=== PATIENT | female | born 1955 | race Caucasian/White ===

== ENCOUNTER → 2021-11-27 12:38 | Outpatient (CLI) | payer MEDICARE, SELFPAY ==
[2021-11-27 14:15] LABS: COVID19 -Nasal RAPID Negative (Negative)
== END ==
PROVIDERS: PCP Family Medicine; Referring Provider Orthopaedic Surgery; Visit Provider Orthopaedic Surgery
DX: Z20.822 Contact with and (suspected) exposure to COVID-19 (principal)
CPT/HCPCS: 87635; C9803

== ENCOUNTER 2021-11-29 10:25 | Day surgery (SDC) | payer MEDICARE, SELFPAY ==
[2021-11-21 13:58] VITALS: BMI 34.2
[2021-11-29] VITALS (17 sets, daily range): BP systolic 121–156; BP diastolic 55–83; PULSE 71–94; RESP 14–22; TEMP 36.4–37.2; O2SAT 92–100; BMI 34.2
--- NOTE | 2021-11-29 07:30 | DI.RAD.S_ITS ---
PROCEDURE: XR KNEE RT 1TO2V INDICATIONS: post op total knee TECHNIQUE: 2 view(s) of the knee acquired. COMPARISON: [facility] [place], [place], XR KNEE 4+ VIEWS RIGHT, 07/07/2021, 9:35. FINDINGS: Bones: Patient is status post knee joint arthroplasty. Hardware components are in expected positions. Visualized bony structures are intact. Soft tissues: Overlying postoperative changes are noted. Vascular calcifications indicate atherosclerosis. IMPRESSION: Expected immediate postoperative appearance of right TKA. Dictated by: Mikhail Velasco RR Interpreted: Karl Bro MD on 11/29/2021 at 16:17 Transcribed by: SHIRA on 11/29/2021 at 16:18 Approved by: Karl Bro M.D. on 11/29/2021 at 18:50
[2021-11-29] MEDS: ACETAMINOPHEN 325 MG TABLET 975 MG PO (11:21)
[2021-11-29] MEDS: LACTATED RINGERS 1,000 ML 100 ML IV ×2 (11:31→16:27)
--- NOTE | 2021-11-29 11:53 | PM.PREOP ---
Pre-operative Note COVID-19 COVID-19 status: Negative Result date/Date tested (Pos, Neg/Pending): 11/27/21 Interval Note History & Physical reviewed/Exam performed by Physician: Yes Changes to H&P: No
--- NOTE | 2021-11-29 12:40 | SUR.PREOP ---
11/13/[id number] here with patient. confirmed name//procedure/md. agreed to recieve block. on monitor. oxygen at 2l nc. sedated by anesthesia with versed. monitored at bedside. 1225-block completed. patient did well. pictures and ekg strip in chart to OR. 1230-off monitors. to OR.
[2021-11-29] MEDS: CEFAZOLIN 2 GM/20 ML SYRINGE IV (12:45)
[2021-11-29] MEDS: TRANEXAMIC ACID 1,000 MG VIAL 1000 MG INJ ×2 (13:10→14:23)
[2021-11-29] MEDS: MORPHINE 4 MG/ML INJ INJ (13:18)
[2021-11-29] MEDS: BUPIVACAINE 0.25% (PF) 60 ML, EPINEPHrine 0.3 MG INJ ×2 (13:23→13:24)
--- NOTE | 2021-11-29 13:28 | SUR.OPER ---
Supine on padded OR bed. Pillow under head, arms secured on padded armboards <90 degree abduction. Safety belt across torso. Non-operative leg secured with tape over blanket over lower leg. Operative leg secured in DeMayo/Nolan/Nathe positioner. Foam padded brace at thigh of operative leg.POSITION APROVED BY ANESTHESIA AND SURGEON
[2021-11-29] MEDS: LACTATED RINGERS 1,000 ML 42 ML IV (13:48)
[2021-11-29] MEDS: BUPIVACAINE LIPOSOME 266 MG/20 ML VIAL INJ (13:50)
--- NOTE | 2021-11-29 14:33 | PM.OP.1 ---
Operative Date/Time/Diagnoses Date of procedure: 11/29/21 Time of procedure: 14:33 Pre-op diagnosis: 1. Right knee osteoarthritis 2. History of patellar fracture Post-op diagnosis: same Procedure & Clinicians Procedure: Right total knee replacement Same procedure as scheduled: Yes Indications: The patient has had progressively worsening right knee pain with radiographic changes consistent with arthritis. She also has a prior vertical patellar fracture and the potential for a modified patellar prosthesis was discussed. Non-operative management has failed and the patient has requested total knee replacement. The risks, benefits and alternatives to surgery were discussed with the patient prior to proceeding. Risks discussed included, but were not limited to, failure to relieve pain, stiffness, infection, nerve damage, deep venous thrombosis, pulmonary embolism, stroke, coma, heart attack, permanent paralysis and , as well as the potential need for eventual revision of the prosthetic. Surgeon: Yahir Caceres Chemical Handler: Sanjay Hernandez Click Yes if Unassisted: No Anesthesia Type: Spinal, Sedation and Local Operative Notes Findings: Severe tricompartmental osteoarthritis worst on the lateral side. Closure Type: primary Specimen(s): none sent Prosthetic devices, grafts, tissues, transplants, or devices: Implants used in this procedure were manufactured by the [employer] and [employer] and included the BCS II Journey total knee replacement with a size 4 right cobalt chromium femoral component, a size 4 right non porous tibial base plate, a 9 mm cross-linked polyethylene insert and a 35 mm oval Renetta II patellar component. Applied: implant(s) Estimated Blood Loss (mL): 25 Blood products transfused: none Tourniquet time (min): 48 Procedure in detail: The patient was seen in the pre-operative area, where the patient identified the right knee as the operative site and this was marked with my initials. The patient received pre-operative antibiotics, and was taken to the operating room and placed on the operative table in the supine position. After satisfactory anesthesia, a time stamp assembler out was performed. The right leg was encircled with a tourniquet about the proximal thigh, and the leg was prepared from the toes to the tourniquet with ChloroPrep in the usual fashion and draped through sterile drapes. The leg was elevated and exsanguinated with Eschmark bandage and the tourniquet inflated to 250 mmHg pressure. The knee was approached through an approximately 18 cm incision centered over the patella and carried into the knee through a medial parapatellar arthrotomy. The anterior osteophytes and soft tissues were removed. The rotational landmarks of Stacie's line and the transepicondylar axis were marked on the femur with electrocautery, and intramedullary guide holes for the femur and tibia were created. The distal femoral cut was made in 6 degrees of valgus using the intramedullary guide at the primary cut setting. The proximal tibial cut was then made using the intramedullary guide, taking 7 mm of bone off the less involved medial side. The extension gap was checked and the rotation of the femoral component confirmed with the gap balancing system. The anterior, posterior and chamfer cuts were then made. The posterior osteophytes and soft tissues were then removed. The posterior capsule was injected with part of a mixture of 50 ml 0.25% Marcaine mixed with 20 ml Exparel and 4 mg of morphine for post-operative pain control. The remainder of this mixture was injected into the capsule and subcutaneous tissues during cement curing. The tibia was prepared with the rotation set by an extra medullary guide. Trial tibial and femoral components were then placed and the intercondylar notch cut through the femoral trial. Range of motion was 0-135 degrees, with good stability throughout the range. The patella was then cut to accommodate the patellar prosthetic. There was a tendency for lateral patellar subluxations or lateral release was performed. This corrected the tracking. The trials were then removed, and the femoral hole plugged with a bone plug. The bone was prepared with pulsatile lavage, and dried with a sponge. Cement was applied and the final prosthetics placed. Excess cement was removed during and after cement curing. After confirming there was no extruded cement posteriorly, the final tibial insert was placed. The knee was copiously irrigated and the tourniquet deflated. Hemostasis was obtained. The capsule was closed with interrupted # 2 polyester suture. The subcutaneous layer was closed with 3-0 Vicryl, and the skin with a running 3-0 V-Lock suture and Dermabond. An Aquacel Ag dressing was applied and the patient was taken to recovery having tolerated the procedure well. Complications: none Post-operative Condition: stable Disposition: PACU Plan for aftercare: The patient will be maintained on a standard total knee replacement protocol with weight bearing as tolerated. The patient will receive aspirin and sequential compression devices for DVT prophylaxis. The patient will be discharged home when safe for the home environment.
[2021-11-29] MEDS: HYDROMORPHONE 2 MG INJ IV ×2 (15:13→15:24)
--- NOTE | 2021-11-29 15:55 | SUR.PHASEI ---
1545: Pt A&Ox4, reports pain as tolerable, denies nausea, dressing is c/d/i, and ready to transfer to room. Report called to LAZARA Malone using SBAR and time allowed for questions. Pt transported to room 216. Sister updated.
[2021-11-29] MEDS: PREGABALIN 50 MG CAPSULE 100 MG PO ×2 (17:13→20:54)
[2021-11-29] MEDS: OXYCODONE IR 10 MG TABLET PO (17:18)
[2021-11-29] MEDS: ACETAMINOPHEN 325 MG TABLET 650 MG PO ×2 (17:19→23:49)
[2021-11-29] MEDS: HYDROMORPHONE 0.5 MG INJ 0.2 MG IV (19:03)
--- NOTE | 2021-11-29 19:55 | PC.NURSE ---
pt up from PACU this afternoon settled in to room A&Ox3 +CMS to R foot. dressing c/d/I. She denies n/v, and tolerates dinner fairly. She is on 2 LNC. BG 89 and insulin held. She is medicated with prn pain medications oxycodone and scheduled meds without much effect, rating pain 8/10 upon reassment with oxycodone. She is given prn hydroxizine and prn hydromorphone and is asking for assistance to use the restroom this evening. IVF running at 100 ml/hr. Continuous monitoring.
[2021-11-29] MEDS: OXYCODONE IR 5 MG TABLET PO (20:52)
[2021-11-29] MEDS: DONEPEZIL 5 MG TABLET 10 MG PO (20:53)
[2021-11-29] MEDS: ATORVASTATIN 20 MG TABLET PO (20:53)
[2021-11-29] MEDS: DULOXETINE 30 MG CAPSULE 60 MG PO (20:53)
[2021-11-29] MEDS: DOCUSATE 100 MG CAPSULE PO (20:53)
[2021-11-29] MEDS: AMLODIPINE 5 MG TABLET 10 MG PO (20:54)
[2021-11-29] MEDS: ASPIRIN EC 81 MG TABLET PO (20:54)
[2021-11-29] MEDS: METFORMIN HCL 500 MG TABLET 1000 MG PO (20:55)
[2021-11-29] MEDS: HYDROMORPHONE 2 MG TABLET PO (23:48)
[2021-11-30] VITALS: BP 140/78; PULSE 102; RESP 18; TEMP 36.8; O2SAT 96
[2021-11-30] MEDS: HYDROMORPHONE 2 MG TABLET PO ×2 (02:35→06:05)
[2021-11-30 02:49] LABS: Hemoglobin 10.5 g/dL (12.0-16.0)
[2021-11-30 04:15] VITALS: BP 137/66; PULSE 105; RESP 19; TEMP 36.9; O2SAT 95
[2021-11-30] MEDS: ACETAMINOPHEN 325 MG TABLET 650 MG PO ×2 (06:05→11:21)
[2021-11-30] MEDS: PANTOPRAZOLE DR 40 MG TABLET PO (06:05)
--- NOTE | 2021-11-30 07:33 | PM.DS.1 ---
History of Present Illness History of Present Illness Date Patient Seen: 11/30/21 Time Patient Seen: 07:33 Chief complaint: OPB Narrative: History and physical is contained in the chart previously completed note. Please refer to that note for this information. Discharge Providers Provider Date of admission: November 29, 2021 Discharge Date: 11/30/21 Primary care physician: Radha Jacinto MD Consults: 11/29/21 15:53 Consult to Discharge Planning Routine Comment: Consult to Physical Therapy Evaluate & Treat Comment: Physician Instructions: postop TKA protocol Discharge provider: Yahir Caceres MD Summary Hospital Course Discharge Diagnosis: 1. Right knee osteoarthritis 2. Post hemorrhagic anemia Hospital Course: The patient was admitted to the hospital and taken directly to the operating room on November 29, 2021. She underwent a right total knee replacement without complication. On postoperative day 1 she had a mild post hemorrhagic anemia but was otherwise stable. She had been able to walk around the room overnight and felt prepared to go home later in the day. Status at Discharge Cognitive/behavioral status at discharge: at baseline, oriented Functional status at discharge: uses cane/walker Overall status at discharge: patient is progressing back to baseline Time Spent with Patient Time spent: Less than 30 minutes Exam Vital Signs (past 8 hours): - 11/30/21 00:00 11/30/21 04:15 Temperature 98.3 F 98.5 F Pulse Rate 102 H 105 H Respiratory Rate 18 19 Blood Pressure 140/78 137/66 Pulse Oximetry 96 95 Oxygen Flow Rate 2 2 Oxygen Delivery Method Room Air Oxygen Flow Rate 2 Narrative Exam Narrative: Right knee wound is dressed with no drainage on the bandage. Calf is soft. Light touch and motion are intact in the right lower extremity. Objective Labs Result Diagrams: 11/30/21 02:33 Labs: Laboratory Results - last 24 hr 11/30/21 02:33 Hgb 10.5 L Hct 32.0 L PFSH Medical History Anxiety ASD (atrial septal defect) Chronic back pain CVA (cerebral vascular accident) Diabetes Diabetic neuropathy Fibromyalgia HLD (hyperlipidemia) HTN (hypertension) Kyphosis Mild dementia VENECIA (obstructive sleep apnea) Osteoarthritis Scoliosis Urinary frequency Surgical History History of bunionectomy of right great toe History of hysterectomy History of orthopedic surgery History of orthopedic surgery History of repair of hiatal hernia History of tonsillectomy and adenoidectomy Hx of bariatric surgery (03/2021) Hx of cholecystectomy S/P epidural steroid injection Social History household members: family Smoking Status: Never smoker alcohol intake: former Discharge Assessment & Plan Assessment and Plan Assessment: Stable postoperative day 1 status post right total knee replacement with mild post hemorrhagic anemia which should resolve without specific intervention. Patient has been able to ambulate around the room and feels ready for discharge today. Plan of Treatment: Discharge to home after physical therapy this morning. Follow-up in the office in 2 weeks. Discharge prescriptions for oxycodone have been sent to her pharmacy. She has been instructed in the use of Tylenol for mild pain issues. She cannot use anti-inflammatories for pain. She has been instructed in the use of aspirin for DVT prophylaxis. Discharge Plan Discharge Plan Patient Disposition: Home Discharge orders & Medications Discharge Orders: Discharge (Order); Ordered 11/30/21 Ordered By: Yahir Caceres Prescriptions: New acetaminophen 325 mg Tablet 650 mg PO Q6HR Qty: 120 0RF aspirin 81 mg Tablet,Delayed Release (Dr/Ec) 81 mg PO BID Qty: 84 0RF oxycodone 5 mg Tablet 5 mg PO Q4H PRN (Reason: Pain, Moderate (4-6)) Qty: 40 0RF Continued multivitamin Tablet 1 tab PO DAILY atorvastatin 20 mg Tablet 20 mg PO BEDTIME donepezil [Aricept] 10 mg Tablet 10 mg PO BEDTIME omeprazole 40 mg Capsule,Delayed Release(Dr/Ec) 40 mg PO DAILY tramadol 50 mg Tablet 50 mg PO DAILY PRN (Reason: Pain) amlodipine 10 mg Tablet 10 mg PO BEDTIME metformin 1,000 mg Tablet 1,000 mg PO BID duloxetine 60 mg Capsule,Delayed Release(Dr/Ec) 60 mg PO BID eszopiclone [Lunesta] 3 mg Tablet 3 mg PO BEDTIME pregabalin 50 mg Capsule 100 mg PO TID magnesium oxide 400 mg magnesium Tablet 400 mg PO DAILY Novolin 70/30 U-100 Insulin 100 unit/mL (70-30) Suspension 15 unit SUBCUT QAM Label Comments: 6 u Novolin 70/30 U-100 Insulin 100 unit/mL (70-30) Suspension 6 - 8 unit SUBCUT BEDTIME cyclosporine [Restasis] 0.05 % Dropperette 1 drp OPHTHALMIC (EYE) BID Discontinued aspirin 81 mg Capsule 81 mg PO DAILY Follow up/Referrals: Radha Jacinto MD [Primary Care Provider] - Yahir Caceres MD [Physician] - 2 Weeks Diet/Activity/Treatments Diet: Diet as Tolerated and Carb-consistent/Diabetic Activity: You may bear weight as tolerated on your right leg. Cold/Heat Therapy: You may apply ice for 15 minutes every hour as needed to the right knee for pain control. Skin/Wound/Dressing Care Report to your healthcare provider any signs of infection, such as:: chills, fever, night sweats, increased pain, unusual drainage and unusual redness Dressing: You may remove the Herb wrap 3 days after surgery and shower normally with the deeper dressing in place. Leave the deeper dressing in place until your postoperative follow-up. If the central strip of the dressing becomes saturated with either water or blood, please call the office to have it evaluated. Visit Report/Discharge Packet Instructions: DI for Knee Replacement Stand Alone Forms: Surgery Discharge Discharge Data Primary Care Provider: Radha Jacinto Attending Provider: Yahir Caceres
[2021-11-30] MEDS: INSULIN NPH/REG 70-30 100 UNIT/ML 3ML VIAL 15 UNIT SUBCUT (08:22)
[2021-11-30] MEDS: ASPIRIN EC 81 MG TABLET PO (08:23)
[2021-11-30] MEDS: METFORMIN HCL 500 MG TABLET 1000 MG PO (08:23)
[2021-11-30] MEDS: DULOXETINE 30 MG CAPSULE 60 MG PO (08:23)
[2021-11-30] MEDS: PREGABALIN 50 MG CAPSULE 100 MG PO ×2 (08:23→16:02)
[2021-11-30] MEDS: OXYCODONE IR 10 MG TABLET PO ×3 (08:23→16:01)
[2021-11-30] MEDS: MULTIVITAMIN 1 TABLET 1 TAB PO (08:23)
[2021-11-30] MEDS: DOCUSATE 100 MG CAPSULE PO (08:23)
[2021-11-30] MEDS: MAGNESIUM OXIDE 400 MG TABLET PO (08:23)
[2021-11-30 08:32] VITALS: BP 119/46; PULSE 90; RESP 16; TEMP 36.4; O2SAT 91
--- NOTE | 2021-11-30 09:46 | PT.IIE ---
Current Diagnoses Unilateral primary osteoarthritis, right knee (11/29/21) Surgery Performed Operation Date: 11/29/21 12:30 Actual Procedures p Total Knee Arthroplasty(Right) - Yahir Caceres MD Surgical History (Last Reviewed 11/29/21 @ 10:46 by Peggy Bradley, RN) History of bunionectomy of right great toe History of hysterectomy History of orthopedic surgery History of orthopedic surgery History of repair of hiatal hernia History of tonsillectomy and adenoidectomy Hx of bariatric surgery (03/2021) Hx of cholecystectomy S/P epidural steroid injection Medical History (Last Reviewed 11/29/21 @ 10:46 by Peggy Bradley, LAZARA) Anxiety ASD (atrial septal defect) Chronic back pain CVA (cerebral vascular accident) Diabetes Diabetic neuropathy Fibromyalgia HLD (hyperlipidemia) HTN (hypertension) Kyphosis Mild dementia VENEICA (obstructive sleep apnea) Osteoarthritis Scoliosis Urinary frequency Physical Therapy Inpatient Evaluation/Re-Eval M1 PT/OT-IP Prior Functional Status Start: 11/30/21 12:37 Freq: NEEDED Status: Active Protocol: Document 11/30/21 09:46 AB (Rec: 11/30/21 12:55 AB [id number]) Medical Review Prior Functional Status Medical History Reviewed Yes Communication able to make needs known; pt stated that she has dementia and harder for her to remember Mobility and Gait pt stated that she is modified independent with all mobilities and ambulation withotu AD Social History Household Members family Living Arrangements Apartment/Condo Number of Floors (Floors) Two Floors Number of Stairs To Enter/Railing? pt stays on main level of the house 3 platform steps with R rail descending to get into the house Home Environment Standard Height Toilet,Tub/ Shower Home Equipment Front Wheel Walker,Shower Seat with Backrest,Grab Bars Near Toilet,Grab Bars In Shower Additional Social History Comment pt sleeps on a recliner M2 PT-IP Current Condition Start: 11/30/21 12:37 Freq: NEEDED Status: Active Protocol: Document 11/30/21 09:46 AB (Rec: 11/30/21 12:55 AB [email or web address]) Physical Therapy Current Condition Current Condition Evaluation Date 11/30/21 Treatment Diagnosis s/p R TKA; difficulty in walking Onset Date 11/29/21 M3 PT-IP Subjective Start: 11/30/21 12:37 Freq: NEEDED Status: Active Protocol: Document 11/30/21 09:46 AB (Rec: 11/30/21 12:55 AB [id number]) Subjective Physical Therapy Visit Type Type Initial Evaluation Visit Start Time 09:46 Visit Stop Time 10:30 Total Visit Minutes 44 Number of PRESSURE WELDER Visits 0 Physical Therapy Visit Comments Patient Comments agreeable to do PT Therapy Pain Assessment Pain When Pain Assessed At Rest Pain Present Pain Present Pain Reported Location Right Knee Intensity 5 Scale Used 8/10 during mobility Pain Management Techniques Apply Cold,Distraction, Modification of Treatment,Re- positioning,Timing of Activity with Medications M4 PT-IP Mobility and Gait Start: 11/30/21 12:37 Freq: NEEDED Status: Active Protocol: Document 11/30/21 09:46 AB (Rec: 11/30/21 12:55 [id number]) PT-Bed Mobility Assessment Supine to Sit Supine to Sit Standby Assistance PT-Transfer Assessment Sit to and From Stand Sit to and from Stand Minimal Assistance,1 Person Assistance,Use of Upper Extremities Equipment Transfer Assistive Device Gait Belt,Front Wheeled Walker Orthotic/Prosthetic Devices or Brace: No Transfers Transfer Destination Toilet Transfer Technique ambulated Transfer Ability Level of Assist Standby Assistance,Contact Guard Assistance,Use of Upper Extremities Comments Mobility Comments completed supine to sit SBA. completed sit to stand min a and ambulated to the toilet using FWW SBA to CGA. able to complete toileting needs and ambulated to the sink using FWW SBA. able to maintain standing using FWW for support SBA. pt stated she needs to sit and rest and ambulated to the chair using FWW SBA. pt agreed to do step training. ambulated towards the platform step using FWW SBA to CGA ~ 30 ft. attempted up/down platform step x 3 but pt unable to complete. pt ambulated back to her chair using FWW SBA to CGA. increase trunk flexion/ kyphosis towards end of ambulation. pt agreed to sit on the chair. positioned on the chair. call light and table placed within reach. set up caregiver training with pt's sister at 1pm this afternoon. Gait Assessment Gait Gait Assistance Required: Standby Assistance,Contact Guard Assist Distance (Feet) 30 Able to Maintain Weight Bearing Status Yes During Gait Assistive Devices Assistive Device Gait Belt,Front Wheeled Walker Orthotic/Prosthetic Devices or Brace: No Gait Deviations General Gait Pattern Antalgic,Decreased Stride Length,Decreased Feet Clearance,Step-to Gait Factors Limiting Gait Function Factors Limiting Gait Function Decreased Activity Tolerance, Decreased Strength,Difficulty Following Directions,Limited Range of Motion,Pain,Poor Balance,Poor Safety Awareness Stair Climbing Assessment Comments Stair Climbing Comments attempted but pt unable to complete PT-Balance Assessment Sitting Balance and Reactions Static Sitting Balance Ability Normal Dynamic Sitting Balance Ability Good Standing Balance and Reactions Static Standing Balance Ability Fair Dynamic Standing Balance Ability Fair Device Used FWW M5 PT-IP Objective Assessments Start: 11/30/21 12:37 Freq: NEEDED Status: Active Protocol: Document 11/30/21 09:46 AB (Rec: 11/30/21 12:55 AB [email or web address]) Orientation Orientation/Cognition Level of Alertness Alert Orientation Name,Situation Language Function Ability Hard of Hearing Safety Awareness Decreased Safety Awareness Memory Description Short Term Impaired Gross Range of Motion Lower Extremity ROM Impairments R knee flexion: ~ 70 deg Strength Lower Extremity Strength Assessment Right Impaired Hip 4-/5 Knee 3+/5 Coordination Assessment Gross Coordination Gross Coordination WNL Sensation Assessment Sensation Gross Sensation WNL Muscle Tone Muscle Tone WNL Yes M6 PT-IP Treatment Start: 11/30/21 12:37 Freq: NEEDED Status: Active Protocol: Document 11/30/21 09:46 AB (Rec: 11/30/21 12:55 AB [email or web address]) Physical Therapy Treatment Education Education Provided Precautions,Weight Bearing Status,Post-Op Packet,Safety M7 PT-IP Assessment and Plan Start: 11/30/21 12:37 Freq: NEEDED Status: Active Protocol: Document 11/30/21 09:46 AB (Rec: 11/30/21 12:55 [email or web address]) PT Summary Assessment and Plan Potential Rehabilitation Potential Fair Status of Condition at Evaluation Stable Summary Impairments Pain,ROM,Strength,Balance, Coordination,Sensation,Tone, Cognition,Bed Mobility, Transfers,Gait,Activity Tolerance Assessment Summary pt requiring SBA to CGA with ambulation using FWW but unable to complete stair climbing. caregiver training set up at 1pm today with pt's sister. will continue to assess progress. Goals Bed Mobility Goal Independent Transfer Goal Standby Assistance,Front Wheeled Walker Gait Goal Standby Assistance,Front Wheel Walker Gait Distance 200 Other Goals up/down 3 platform steps using FWW SBA Days to Meet Goals 5 Frequency of Treatment Frequency Of Treatment Twice a Day Treatment Plan Physical Therapy Treatment Plan Bed Mobility Training,Transfer Training,Gait Training, Therapeutic Exercise,Balance Retraining,Post Op Education, Discharge Planning,Hot or Cold Pack,Neuromuscular Re-ed, Coordination Retraining,Manual Therapy Precautions Other Precautions falls Weight Bearing Status Weight Bearing Status Weight Bear as Tolerated Allowed Weight Bearing Amount (enter % RLE WBAT or #) (%) Recommendations To Nursing Amount of Assist Needed 1 Person Assist Discharge Recommendations PT Discharge Recommendations Home with 31/12 Assist Available,Outpatient PT Transportation Needs at Discharge Private Vehicle
[2021-11-30 13:10] VITALS: BP 99/45; PULSE 95; RESP 16; TEMP 35.9; O2SAT 91
--- NOTE | 2021-11-30 13:10 | PT.IPTN ---
Current Diagnoses Unilateral primary osteoarthritis, right knee (11/29/21) Surgery Performed Operation Date: 11/29/21 12:30 Actual Procedures p Total Knee Arthroplasty(Right) - Yahir Caceres MD Physical Therapy Treatment Note M2 PT-IP Current Condition Start: 11/30/21 12:37 Freq: NEEDED Status: Active Protocol: Document 11/30/21 09:46 AB (Rec: 11/30/21 12:55 AB [id number]) Physical Therapy Current Condition Current Condition Evaluation Date 11/30/21 Treatment Diagnosis s/p R TKA; difficulty in walking Onset Date 11/29/21 M3 PT-IP Subjective Start: 11/30/21 12:37 Freq: NEEDED Status: Active Protocol: Document 11/30/21 13:10 AB (Rec: 11/30/21 14:24 AB [id number]) Subjective Physical Therapy Visit Type Type Treatment Note Visit Start Time 13:10 Visit Stop Time 13:58 Total Visit Minutes [address] F[address]IGHT FIRER Visits 0 Physical Therapy Visit Comments Patient Comments agreeable to do PT Therapy Pain Assessment Pain When Pain Assessed At Rest Pain Present Pain Present Pain Reported Location Right Knee Intensity 5 Scale Used Numeric (0 - 10) Pain Management Techniques Apply Cold,Distraction, Modification of Treatment,Re- positioning,Timing of Activity with Medications M4 PT-IP Mobility and Gait Start: 11/30/21 12:37 Freq: NEEDED Status: Active Protocol: Document 11/30/21 13:10 AB (Rec: 11/30/21 14:24 AB [id number]) PT-Bed Mobility Assessment Supine to Sit Supine to Sit Standby Assistance Sit to Supine Sit to Supine Standby Assistance PT-Transfer Assessment Sit to and From Stand Sit to and from Stand Minimal Assistance,Moderate Assistance,1 Person Assistance ,Use of Upper Extremities Equipment Transfer Assistive Device Gait Belt,Front Wheeled Walker Orthotic/Prosthetic Devices or Brace: No Transfers Transfer Destination Chair Transfer Technique Stand Step Pivot Transfer Ability Level of Assist Standby Assistance,Contact Guard Assistance,1 Person Assistance,Use of Upper Extremities Comments Mobility Comments sister in room for caregiver training. pt completed supine to sit SBA. able to sit on EOB SBA. educated sister on how to use safety belt and how to assist pt. pt's sister was able to put safety belt on pt. educated pt and sister regarding sit to stand technique. pt completed sit to stand min to mod A with sister assisting. completed x 4 reps. completed step transfer to [facility] using FWW CGA. completed sit <> stand from chair x 3 reps. ambulated in room using FWW CGA ~ 40 ft. agreed to do stair. completed up/down platform step mod A and cues with PT assisting on first set and repeated again with sister assisting. pt ambulated back to her room and sister assisted and sat on chair. pt 's sister is worried about pt going home due to mentation per sister since pt has not slept well last night. pt requested to go backt o bed and sister assisted pt to transfer to bed using FWW. positioned pt in bed. call light and table placed within reach. Gait Assessment Gait Gait Assistance Required: Standby Assistance,Contact Guard Assist Distance (Feet) 30 Able to Maintain Weight Bearing Status Yes During Gait Assistive Devices Assistive Device Gait Belt,Front Wheeled Walker Orthotic/Prosthetic Devices or Brace: No Gait Deviations General Gait Pattern Within Normal Limits,Decreased Stride Length,Decreased Feet Clearance Factors Limiting Gait Function Factors Limiting Gait Function Decreased Activity Tolerance, Decreased Strength,Difficulty Following Directions,Limited Range of Motion,Pain,Poor Balance,Poor Safety Awareness Stair Climbing Assessment Evaluation Level of Assist On Stairs Moderate Assistance,1 Person Assistance Devices Stair Climbing Assistive Devices Front Wheel Walker Technique/Endurance Stair Climbing Direction Ascend and Descend Stair Climbing Technique Step to Step Number of Steps Climbed 1 Stair Climbing Set # Repetitions (reps) 2 PT-Balance Assessment Sitting Balance and Reactions Static Sitting Balance Ability Good Dynamic Sitting Balance Ability Good Standing Balance and Reactions Static Standing Balance Ability Fair Dynamic Standing Balance Ability Fair Device Used FWW M5 PT-IP Objective Assessments Start: 11/30/21 12:37 Freq: NEEDED Status: Active Protocol: Document 11/30/21 09:46 AB (Rec: 11/30/21 12:55 AB [id number]) Orientation Orientation/Cognition Level of Alertness Alert Orientation Name,Situation Language Function Ability Hard of Hearing Safety Awareness Decreased Safety Awareness Memory Description Short Term Impaired Gross Range of Motion Lower Extremity ROM Impairments R knee flexion: ~ 70 deg Strength Lower Extremity Strength Assessment Right Impaired Hip 4-/5 Knee 3+/5 Coordination Assessment Gross Coordination Gross Coordination WNL Sensation Assessment Sensation Gross Sensation WNL Muscle Tone Muscle Tone WNL Yes M6 PT-IP Treatment Start: 11/30/21 12:37 Freq: NEEDED Status: Active Protocol: Document 11/30/21 13:10 AB (Rec: 11/30/21 14:24 AB [id number]) Physical Therapy Treatment Exercises Exercises Heel Slides Education Education Provided Safety M7 PT-IP Assessment and Plan Start: 11/30/21 12:37 Freq: NEEDED Status: Active Protocol: Document 11/30/21 13:10 AB (Rec: 11/30/21 14:24 AB [id number]) PT Summary Assessment and Plan Potential Rehabilitation Potential Fair Summary Impairments Pain,ROM,Strength,Balance, Coordination,Sensation,Tone, Cognition,Bed Mobility, Transfers,Gait,Activity Tolerance Progress Towards Goals Slow Progress due to Pain,Slow Progress due to Medical Issues,Slow Progress due to Activity Tolerance Assessment Summary caregiver training conducted and pt's sister was able to assist pt safely. pt may go home when medically stable. pt has outpt PT scheduled. Goals Bed Mobility Goal Independent Transfer Goal Standby Assistance,Front Wheeled Walker Gait Goal Standby Assistance,Front Wheel Walker Gait Distance 200 Other Goals up/down 3 platform steps using FWW SBA Days to Meet Goals 5 Frequency of Treatment Frequency Of Treatment Twice a Day Treatment Plan Physical Therapy Treatment Plan Bed Mobility Training,Transfer Training,Gait Training, Therapeutic Exercise,Balance Retraining,Post Op Education, Discharge Planning,Hot or Cold Pack,Neuromuscular Re-ed, Coordination Retraining,Manual Therapy Precautions Other Precautions falls Weight Bearing Status Weight Bearing Status Weight Bear as Tolerated Allowed Weight Bearing Amount (enter % RLE WBAT or #) (%) Recommendations To Nursing Amount of Assist Needed 1 Person Assist Discharge Recommendations PT Discharge Recommendations Home with 31/12 Assist Available,Outpatient PT Transportation Needs at Discharge Private Vehicle
--- NOTE | 2021-11-30 13:14 | CM.DANOTE ---
Patient is a 66 yo female who was admitted on 11/29/21 for RTKA. Pt has [facility] and [employer] for insurance and her PCP is Radha Jacinto. EMR was reviewed. Per Ortho MD, pt tolerated procedure well and seems to have good pain control and stable for d/c today after PT eval. Per PT, pt was able to participate in eval and has 3 steps in her home and recommending home with assist and outpt PT and set up CG training with pt's sister today around 1300 prior to discharge. Pt resides in [facility] and lives with family and confirms she has mild cog impairment from early dementia which makes it hard to remember precautions on her own and therefore thankful that sister will be present for CG training with PT and there to assist at d/c. Pt preference is home today and does not anticipate any needs. Plan: SW to follow closely for CG training this afternoon with pt and sister to confirm safe plan of home and any further identified discharge needs. EUGENE Anderson Discharge Planning/Care Management Pre-Anesthesia Assessment Start: 11/21/21 13:58 Freq: Status: Active Protocol: Document 11/21/21 13:58 [facility] (Rec: 11/21/21 14:38 CAB [id number]) Pre-Anesthesia Assessment Patient Information Reviewed Via Phone Assessment Assessment Completed With Patient Diagnostic Results BMP/CMP,CBC Comment Outside lab scanned, ECG done @ [facility], not here, COVID screen- needs to sched Primary Care Provider Radha Jacinto Seen Specialist in Last 12 Months Yes Specialist Seen Orthopedist,Other Comment Bariatric surgeon Primary Language Singaporean Chemistry Instructor Required No Height 167.64 cm Weight 96.162 kg Body Mass Index (BMI) 34.2 Hearing Ability Normal Visual Assist Glasses Dentition Type Teeth, Natural Present Barriers to Learning Memory Hx Anesthesia Reactions No Hx Family Anesthesia Reaction No Hx Malignant Hyperthermia No Hx Blood Transfusions No Anesthesia Review Requested No alcohol intake former Smoking Status Never smoker Substance Use Type does not use Pain Present Pain Reported Musculoskeletal Symptoms Abnormal Gait,Back Pain, Difficulty Walking,Joint Pain, Muscle Weakness History of Falling (Recent or History of Yes ) Patient is completely paralyzed or No completely immobile Mental Status Oriented to own ability Is patient on oxygen? No Does patient have MADDOX/SOB Yes: MADDOX with walking due to deconditioning Hx Sleep Apnea Yes: Resolved after gastric bypass surgery Currently Taking a Beta Toñito No Can You Climb a Flight of Stairs Without No SOB Hx Chest Pain No Hx SOB Yes: MADDOX with walking due to deconditioning Hx Syncope or Dizziness No Anti-Coagulant Therapy No Has a Retail Sales Manager No Cardiac Testing No Hx Pacemaker/ICD No Pacemaker Rep Required? No Cardiac Clearance Received Not Applicable Diet Type At Home Regular dysphagia No Bladder Pattern Frequency,Incontinent,Urgency Urinary Catheter Present No Hx Urinary Self Catheterization No Diabetes Yes: Pt checks blood sugar twice a day Patient No Lactating No Hx Drug Resistant Organism No Presence of External or Internal Medical No Devices Have you had any close contact with No someone diagnosed with COVID-19? Received a COVID vaccine? Yes Received all doses? Yes Marital Status / Lives With family Prior Living Arrangements Apartment/Condo Support System Sibling(s) Does the Patient Have Assistance After Yes: Sister will assist with Surgery care at [facility] Patient Discharge Plan Description Return Home Comment Pt advised overnight length of stay per surgeon Feels Safe in Current Environment Yes Been Physically Hurt or Threatened By a No Person in Current Environment Do you have thoughts of harming yourself None or others? Are you currently considering suicide? No Do you have a plan to hurt yourself or No Plan others? Do You Have Any Spiritual Beliefs That No May Affect Your HC Choices? Do You Have Any Cultural Practices That No May Affect Your HC Choices? Comment Anglican Who Can We Speak to About Patient's Care Family, friends Identifying Code for Release of Patient Declines to issue Information Health Care Proxy/Next of Kin Geneva (sister) Health Care Proxy Emergency Contact Name Geneva (sister) Emergency Contact Advance Directives? No Power of Lumber Stacker No PAC Instructions Diabetes instructions,Do not shave/clip surgical site, Durable medical equipment, Medications to take/avoid, Nasal antibiotic,No ETOH/ petroleum product on skin DOS, NPO,Pre-surgical wash,Sturdy shoes/comfortable clothes,Do not bring valuables and remove jewelry
[2021-11-30 16:01] VITALS: BP 148/69; PULSE 104
== END 2021-11-30 16:18 | disposition home or self-care (01) ==
LOC: OR 10:26 → AC 10:26
PROVIDERS: PCP Family Medicine; Referring Provider Orthopaedic Surgery; Visit Provider Orthopaedic Surgery
PROC: 0SRC0JZ Replacement of Right Knee Joint with Synthetic Substitute, Open Approach (ICD-10-PCS; CPT 27447; principal; 2021-11-29 12:30)
DX: M17.11 Unilateral primary osteoarthritis, right knee (principal); S82.02 Longitudinal fracture of patella; E66.01 Morbid (severe) obesity due to excess calories; D50.0 Iron deficiency anemia secondary to blood loss (chronic); G47.33 Obstructive sleep apnea (adult) (pediatric); E11.9 Type 2 diabetes mellitus without complications; Z86.73 Personal history of transient ischemic attack (TIA), and cerebral infarction without residual deficits; I10 Essential (primary) hypertension; E78.5 Hyperlipidemia, unspecified; Z79.4 Long term (current) use of insulin; Z79.84 Long term (current) use of oral hypoglycemic drugs; Z68.34 Body mass index [BMI] 34.0-34.9, adult
CPT/HCPCS: 27447; 36415; 64450; 73560; 82962; 85014; 85018; 97162; 97530; C1776; C1713; C9290; J0171; J0690; J1170; J1815; J2250; J2270; J2704; J3010

== ENCOUNTER → 2021-12-14 10:49 | Outpatient (CLI) | payer MEDICARE, SELFPAY ==
[2021-11-29 16:13] VITALS: BMI 34.2
[2021-12-14 11:58] LABS: COVID19 -Nasal RAPID Negative (Negative)
== END ==
PROVIDERS: PCP Family Medicine; Referring Provider Orthopaedic Surgery; Visit Provider Orthopaedic Surgery
DX: U07.1 COVID-19 (principal)
CPT/HCPCS: 87635; C9803

== ENCOUNTER 2021-12-16 08:45 | Inpatient (IN) | payer MEDICARE, SELFPAY ==
[2021-11-29 16:13] VITALS: BMI 34.2
[2021-12-14 13:10] VITALS: BMI 35.1
[2021-12-15] VITALS (14 sets, daily range): BP systolic 131–155; BP diastolic 62–78; PULSE 77–102; RESP 16; TEMP 35.9–36.8; O2SAT 91–98; BMI 35.1; BMI 37.5
--- NOTE | 2021-12-15 12:25 | SUR.PREOP ---
Dr Avendaño notified of patient CBG 70 at this time and took 1/2 dose of 70/30 8Units this am, meteformin, lunesta and 70/30 insulin last night. Pt also with significant pain due to no tylenol or oxycodone today. See new orders.
[2021-12-15] MEDS: DEXTROSE 5%-LACTATED RINGERS 1,000 ML 21 ML IV (12:37)
[2021-12-15] MEDS: HYDROMORPHONE 2 MG INJ IV ×2 (12:38→12:52)
--- NOTE | 2021-12-15 12:43 | SUR.PREOP ---
Pt placed on continuous pulse ox for Dilaudid IV dose.
--- NOTE | 2021-12-15 12:47 | PM.PREOP ---
Pre-operative Note COVID-19 COVID-19 status: Negative Result date/Date tested (Pos, Neg/Pending): 12/14/21 Interval Note History & Physical reviewed/Exam performed by Physician: Yes Changes to H&P: No
[2021-12-15] MEDS: CEFAZOLIN 2 GM/20 ML SYRINGE IV ×2 (14:05→23:20)
--- NOTE | 2021-12-15 14:42 | SUR.OPER ---
Addendum entered by Keri Menon R.N. 12/15/21 18:42: 1545- Patient to room 208 and had an I and D of her r.knee. She previously had a total knee done two weeks ago. Dressing is aquacel with louie wrap and is cdi. Patient given dilaudid and tylenol for pain of 10/10, this has been helpful to her. She has a pillow under her knee and she is tolerating her ivf. Original Note: Supine on padded OR bed. Pillow under head, arms secured on padded armboards <90 degree abduction. Safety belt across torso. Non-operative leg secured with tape over blanket over lower leg. Operative leg secured in DeMayo/Nolan/Nathe positioner. Foam padded brace at thigh of operative leg.
--- NOTE | 2021-12-15 14:57 | P.OP_ITS ---
Operative Date/Time/Diagnoses Date of procedure: 12/15/21 Time of procedure: 14:58 Pre-op diagnosis: Superficial infection at wound of right total knee replacement Post-op diagnosis: other (Same as above but also dehiscence of quadriceps closure superiorly) Procedure & Clinicians Procedure: Incision and drainage of right total knee replacement with polyethylene exchange Same procedure as scheduled: Yes Indications: The patient is a 66-year-old woman who underwent a right total knee replacement on November 29, 2021. She was initially doing well but then had increasing discomfort around the site of the operation and some moderate erythema around the wound in the distal portion. This erythema did not progress while she was taking oral antibiotics but also did not significantly improve. Her pain continued to worsen so she was taken to the operating room for incision and drainage as precautionary procedure. She agreed to this after discussion the risks benefits and alternatives. Alternatives discussed included ongoing treatment with oral antibiotics and observation. Risks discussed included but were not limited to: Failure to alleviate any infection, stiffness, nerve damage, deep venous thrombosis, pulmonary embolism, stroke, myocardial infarction, permanent paralysis and . Surgeon: Yahir Caceres Comparative Sociology Professor: Latonya Payne Yes if Unassisted: No Anesthesia Type: General Operative Notes Findings: Subcutaneous hematoma. The cellulitic appearance of the skin had improved in the 24 hours since her preoperative history and physical. There was an area of approximately 2 cm in the quadriceps repair from her medial patellar arthrotomy that had dehisced. Closure Type: primary Specimen(s): other (Cultures were sent from the subcutaneous hematoma area and from the intra-articular aspect.) Prosthetic devices, grafts, tissues, transplants, or devices: The tibial insert was removed and replaced with a new 9 mm size 3-4 right Journey II articular insert. Applied: implant(s) Estimated Blood Loss (mL): 50 Blood products transfused: none Tourniquet time (min): 14 Procedure in detail: Patient was seen in the preoperative area where she identified her right knee as the operative site this was marked with my initials. Was taken to the operating room placed on the operating room table in a supine position. A tourniquet was placed about her proximal right thigh after the induction of a general anesthetic. A continuity coordinator-out was performed. The leg was prepared with ChloraPrep in the usual fashion draped through sterile drapes. The distal 3 cm of wound was reopened through the prior surgical incision. This was spread enough to allow access to the subcutaneous tissues and swab cultures were taken of the underlying hematoma. The wound was eventually extended to the full original length of the incision and organized hematoma was removed. There was no sign of purulence. We palpated the closure line of the arthrotomy and there was a defect palpable in the distal quadriceps which and heard the joint. As result I opened the arthrotomy. All permanent sutures were removed. The intra- articular hematoma was cultured as well. The tibial insert was removed to allow access to the posterior aspect of the knee. Hematoma was removed from the intercondylar notch and posterior as well. The knee was then irrigated with 6 L of pulsatile lavage solution. A new tibial insert was inserted. The tourniquet was deflated at a total tourniquet time of 14 minutes and hemostasis obtained with electrocautery. The arthrotomy was closed with interrupted [id number] sutures of #2 Ethibond. The subcutaneous layer was closed with interrupted 3-0 Vicryl. The skin was closed with zach. An Aquacel Ag dressing was then applied. Complications: none Post-operative Condition: stable Disposition: PACU Plan for aftercare: The patient will be maintained in the hospital on IV Ancef until culture results return. If the culture results are negative she will be discharged on oral Ancef for a 2 week course. If the cultures return positive we will await sensitivities and arrange for appropriate outpatient IV antibiotics for a total duration of 6 weeks.
[2021-12-15] MEDS: OXYCODONE IR 5 MG TABLET PO (15:23)
[2021-12-15] MEDS: ACETAMINOPHEN IV 1,000 MG/100 ML VIAL 400 MG IV (15:34)
[2021-12-15] MEDS: ACETAMINOPHEN 325 MG TABLET 650 MG PO ×2 (17:09→23:19)
[2021-12-15] MEDS: HYDROMORPHONE 2 MG TABLET PO ×2 (17:10→20:58)
[2021-12-15] MEDS: PREGABALIN 50 MG CAPSULE 100 MG PO ×2 (17:20→20:57)
[2021-12-15] MEDS: LACTATED RINGERS 1,000 ML 100 ML IV (17:21)
[2021-12-15] MEDS: ASPIRIN EC 81 MG TABLET PO (20:57)
[2021-12-15] MEDS: DULOXETINE 30 MG CAPSULE 60 MG PO (20:58)
[2021-12-15] MEDS: METFORMIN HCL 500 MG TABLET 1000 MG PO (20:58)
[2021-12-15] MEDS: ATORVASTATIN 20 MG TABLET PO (20:58)
[2021-12-15] MEDS: DOCUSATE 100 MG CAPSULE PO (20:58)
[2021-12-15] MEDS: AMLODIPINE 5 MG TABLET 10 MG PO (20:58)
[2021-12-15] MEDS: OXYCODONE IR 10 MG TABLET PO (23:19)
[2021-12-15] MEDS: DONEPEZIL 5 MG TABLET 10 MG PO (23:20)
[2021-12-16] VITALS (7 sets, daily range): BP systolic 114–141; BP diastolic 47–76; PULSE 85–101; RESP 16; TEMP 35.7–36.9; O2SAT 93–98
[2021-12-16] MEDS: OXYCODONE IR 10 MG TABLET PO ×3 (03:02→10:39)
[2021-12-16] MEDS: ACETAMINOPHEN 325 MG TABLET 650 MG PO ×4 (05:46→23:23)
[2021-12-16] MEDS: PANTOPRAZOLE DR 40 MG TABLET PO (05:46)
[2021-12-16] MEDS: CEFAZOLIN 2 GM/20 ML SYRINGE IV ×3 (05:47→21:31)
[2021-12-16 06:52] LABS: Hematocrit 26.4 % (36-46); Hemoglobin 8.7 g/dL (12.0-16.0)
[2021-12-16] MEDS: INSULIN LISPRO 100 UNIT/ML 3ML VIAL SUBCUT (08:20)
[2021-12-16] MEDS: INSULIN NPH/REG 70-30 100 UNIT/ML 3ML VIAL 15 UNIT SUBCUT (08:22)
[2021-12-16] MEDS: ASPIRIN EC 81 MG TABLET PO ×2 (08:23→21:30)
[2021-12-16] MEDS: DULOXETINE 30 MG CAPSULE 60 MG PO ×2 (08:23→21:28)
[2021-12-16] MEDS: MAGNESIUM OXIDE 400 MG TABLET PO (08:23)
[2021-12-16] MEDS: DOCUSATE 100 MG CAPSULE PO ×2 (08:24→21:31)
[2021-12-16] MEDS: TRAMADOL 50 MG TABLET PO ×2 (08:24→14:09)
[2021-12-16] MEDS: PREGABALIN 50 MG CAPSULE 100 MG PO ×3 (08:24→21:29)
[2021-12-16] MEDS: MULTIVITAMIN 1 TABLET 1 TAB PO (08:24)
[2021-12-16] MEDS: METFORMIN HCL 500 MG TABLET 1000 MG PO ×2 (08:24→21:28)
--- NOTE | 2021-12-16 08:30 | PM.PNPO.1 ---
Subjective Subjective Date Patient Seen: 12/16/21 Time Patient Seen: 08:47 Interval history: Sitting up in bed eating breakfast. C/o moderate pain, but otherwise feeling well. Has not worked w/ PT yet. Exam Vital Signs (past 8 hours): - 12/16/21 01:50 12/16/21 06:00 12/16/21 07:45 Temperature 97.8 F 97.7 F Pulse Rate 98 H 93 H Respiratory Rate 16 16 Blood Pressure 139/76 126/60 Pulse Oximetry 96 98 Oxygen Delivery Method Nasal Cannula Oxygen Flow Rate 2 2 Oxygen Delivery Method Nasal Cannula Oxygen Flow Rate 2 Narrative Exam Narrative: 5/5 strength in hip flexors, quadriceps, hamstrings, DF, PF, EHL bilaterally. Sensation to light touch intact in BLE. Calves soft, compressible, nontender and without palpable cords or masses. Objective Labs Result Diagrams: 12/16/21 06:38 Labs: Laboratory Results - last 24 hr 12/16/21 06:38 Hgb 8.7 L Hct 26.4 L PFSH Medical History Anxiety ASD (atrial septal defect) Chronic back pain CVA (cerebral vascular accident) Diabetes Diabetic neuropathy Fibromyalgia HLD (hyperlipidemia) HTN (hypertension) Kyphosis Mild dementia VENECIA (obstructive sleep apnea) Osteoarthritis Scoliosis Urinary frequency Surgical History (Updated 12/16/21 @ 08:50 by Latonya Cuello PA-C) History of arthroplasty of right knee (11/29/21) History of bunionectomy of right great toe History of hysterectomy History of orthopedic surgery History of orthopedic surgery History of repair of hiatal hernia History of tonsillectomy and adenoidectomy Hx of bariatric surgery (03/2021) Hx of cholecystectomy S/P epidural steroid injection Social History household members: family Smoking Status: Never smoker alcohol intake: former Assessment & Plan Post-op Assessment and plan (1) H/O knee surgery: Assessment and Plan narrative: Right TKA 11/29/2021, taken to surgery for I&D yesterday d/t superficial wound infection. Found to have dehiscence of repair of distal quadriceps, and polyethylene liner was changed. The patient will be maintained in the hospital on IV Ancef until culture results return.? If the culture results are negative she will be discharged on oral Ancef for a 2 week course.? If the cultures return positive we will await sensitivities and arrange for appropriate outpatient IV antibiotics for a total duration of 6 weeks. PT today, ASA BID and SCDs for VTE prophylaxis. Postoperative Procedures: Procedures Operation Date: 12/15/21 12:45 Actual Procedure Side Surgeon p I&D total knee Right Yahir Caceres MD Postoperative day: 1 Quality VTE Deep Vein Thrombosis/Pulmonary Embolism Present on Admission: No
--- NOTE | 2021-12-16 08:46 | CM.DANOTE ---
DCP Assessment: Payor: Medicare PCP: Radha Jacinto MD Pt is a 89 y.o. F who had a R knee replacement on November 29, and presented to the ortho clinic for wound check. MD suspects infection in the wound. Pt scheduled for incision and drainage of R knee on 12/15/21. Following procedure, pt was started on IV ancef and cultures taken. Cultures currently pending. Per MD, if cultures come back negative, pt will discharge home on oral abx. If cultures are positive, pt might have to go home on IV abx for six weeks depending on sensitivities. DCP met with pt bedside this morning. Pt sitting up in bed. DCP introduced herself and role. Pt states that she uses a walker at baseline and does not drive POV. Pt states she relies on her sister, Oly, to drive her to MD appointments and she is pt main contact. Pt states that she lives in a 1 story home with 7 other people who are able to take care of her post discharge. DCP explained that we are awaiting culture results of the wound and depending on result, she might need home IV abx. DCP verbalized that she would be in charge of helping set that up. Pt states to contact her sister if any further communication is to be had. Pt thankful for the discussion. White board updated and instructed to call if any other questions arise. DCP to continue monitoring for culture results and setting up of IV abx if needed. P: Once cultures are resulted, the need to determine oral or IV abx per MD is needed. Once determined, pt will be discharge home via sister POV on PO abx or IV abx. Farhana Smallwood RN, TAOP Discharge Planning/Care Management CM Discharge Assessment Start: 12/16/21 08:44 Freq: Status: Active Protocol: Document 12/16/21 08:44 JUSTIN (Rec: 12/16/21 08:45 JUSTIN [id number]) Discharge Planning Assessment Assigned Physical Therapy Supervisor Farhana Smallwood RN/TAOP Advance Directives? No History Provided By Patient,Medical Record Prior Living Arrangements Apartment/Condo Household Members family Type of transporation used prior to Relies on Others admit Independent with ADL's Yes Is patient alert and oriented? Yes Caregiver for Another No DME Already Rented / Owned FWW / Walker Discharge Plan Home Referrals Initiated None needed Additional Comment At this time. Might need IV abx upon discharge Whiteboard Updated in Patient Room with Yes name and ext. # of Physical Therapy Supervisor Comment Instructed to call Review Status In Process Please Provide Date Initial DC 12/16/21 Assessment Was Performed Next Review Type Continued Stay Review Pre-Anesthesia Assessment Start: 12/14/21 13:10 Freq: Status: Complete Protocol: Document 12/14/21 13:10 CAB (Rec: 12/14/21 13:22 CAB [id number]) Pre-Anesthesia Assessment PAC Comment Pt is s/p RT TKA 11/29/21 Patient Information Reviewed Via Chart Review Comment COVID screen @ [facility] 12/14/21 Negative Primary Care Provider Radha Jacinto Seen Specialist in Last 12 Months Yes Specialist Seen Orthopedist Primary Language [place] Preferred Language [place] Procedure Rn Required No Height 168.91 cm Weight 100.244 kg Body Mass Index (BMI) 35.1 Hearing Ability Normal Visual Assist Glasses Dentition Type Teeth, Natural Present Barriers to Learning Memory Hx Anesthesia Reactions No Hx Family Anesthesia Reaction No Hx Malignant Hyperthermia No Hx Blood Transfusions No Hx Blood Transfusion Reaction No Anesthesia Review Requested No alcohol intake former Smoking Status Never smoker Substance Use Type does not use Pain Present Pain Reported Musculoskeletal Symptoms Abnormal Gait,Back Pain, Difficulty Walking,Joint Pain, Post op Pain Patient is completely paralyzed or No completely immobile Mental Status Oriented to own ability Is patient on oxygen? No Does patient have MADDOX/SOB Yes: MADDOX with walking due to deconditioning Hx Sleep Apnea Yes: Resolved after gastric bypass surgery CPAP/BIPAP use prescribed not used Currently Taking a Beta [place] No Can You Climb a Flight of Stairs Without No SOB Hx Chest Pain No Hx SOB Yes: MADDOX with walking due to deconditioning Hx Syncope or Dizziness No Anti-Coagulant Therapy No Has a Utility Inspector No Cardiac Testing No Hx Pacemaker/ICD No Pacemaker Rep Required? No Diet Type At Home Regular dysphagia No Bladder Pattern Frequency,Incontinent,Urgency Urinary Catheter Present No Hx Urinary Self Catheterization No Diabetes Yes: Pt checks blood sugar twice a day Patient No Lactating No Hx Drug Resistant Organism No Presence of External or Internal Medical No: screw left big toe, right Devices knee Received a COVID vaccine? Yes: booster x 2 Marital Status / Lives With family Prior Living Arrangements Apartment/Condo Patient Discharge Plan Description Return Home Do You Have Any Spiritual Beliefs That No May Affect Your HC Choices? Do You Have Any Cultural Practices That No May Affect Your HC Choices? Emergency Contact Name [place] (sister) Emergency Contact Advance Directives? No Power of Platemaker No
--- NOTE | 2021-12-16 09:55 | PT.IIE ---
Current Diagnoses Infection following a procedure, other surgical site, initial encounter (12/15/21) Other specified postprocedural states (12/15/21) Surgery Performed Operation Date: 12/15/21 12:45 Actual Procedures p I&D total knee(Right) - Yahir Caceres MD Surgical History (Last Updated 12/14/21 @ 13:13 by Devi Jimenez RN) History of arthroplasty of right knee (11/29/21) History of bunionectomy of right great toe History of hysterectomy History of orthopedic surgery History of orthopedic surgery History of repair of hiatal hernia History of tonsillectomy and adenoidectomy Hx of bariatric surgery (03/2021) Hx of cholecystectomy S/P epidural steroid injection Medical History (Last Reviewed 11/29/21 @ 10:46 by Peggy Bradley RN) Anxiety ASD (atrial septal defect) Chronic back pain CVA (cerebral vascular accident) Diabetes Diabetic neuropathy Fibromyalgia HLD (hyperlipidemia) HTN (hypertension) Kyphosis Mild dementia VENECIA (obstructive sleep apnea) Osteoarthritis Scoliosis Urinary frequency Physical Therapy Inpatient Evaluation/Re-Eval M1 PT/OT-IP Prior Functional Status Start: 12/16/21 12:43 Freq: NEEDED Status: Active Protocol: Document 12/16/21 09:55 AB (Rec: 12/16/21 13:02 AB [id number]) Medical Review Prior Functional Status Medical History Reviewed Yes Communication able to make needs known; requires one step cues with all tasks. Mobility and Gait pt with h/o R TKA 11/29/21. Pt went home after knee surgery and her sister assists her. Sister stated that pt is mod I with ambulation using FWW but needs assists with sit<>stand . sister also assists pt with stair climbing. Social History Household Members family Living Arrangements Apartment/Condo Number of Floors (Floors) Two Floors Number of Stairs To Enter/Railing? pt stays on main level of the house has 3 platform steps with R rail descending to enter the house; sister stated that pt holds on to the rail on one side and the walker on the other side while the sister stabilizes that walker for pt Home Environment Standard Height Toilet,Tub/ Shower Home Equipment Front Wheel Walker,Raised Toilet Seat w/Armrests,Shower Seat with Backrest,Hand Held Shower,Grab Bars Near Toilet, Grab Bars In Shower Additional Social History Comment pt sleeps on a recliner M2 PT-IP Current Condition Start: 12/16/21 12:43 Freq: NEEDED Status: Active Protocol: Document 12/16/21 09:55 AB (Rec: 12/16/21 13:02 AB [id number]) Physical Therapy Current Condition Current Condition Evaluation Date 12/16/21 Treatment Diagnosis s/p R TKA I&D and poly exchange; difficulty in walking Onset Date 12/15/21 M3 PT-IP Subjective Start: 12/16/21 12:43 Freq: NEEDED Status: Active Protocol: Document 12/16/21 09:55 AB (Rec: 12/16/21 13:02 AB [email or web address]) Subjective Physical Therapy Visit Type Type Initial Evaluation Visit Start Time 09:55 Visit Stop Time 10:15 Total Visit Minutes 20 Number of REVERBERATORY SKIMMER Visits 0 Physical Therapy Visit Comments Patient Comments agreeable to do PT; c/o feeling weak Therapy Pain Assessment Pain When Pain Assessed At Rest Pain Present Pain Present Pain Reported Location Right Knee Intensity 8 Scale Used Numeric (0 - 10) Pain Management Techniques Distraction,Modification of Treatment,Re-positioning, Timing of Activity with Medications M4 PT-IP Mobility and Gait Start: 12/16/21 12:43 Freq: NEEDED Status: Active Protocol: Document 12/16/21 09:55 AB (Rec: 12/16/21 13:02 AB [email or web address]) PT-Transfer Assessment Sit to and From Stand Sit to and from Stand Maximum Assistance,1 Person Assistance,Use of Upper Extremities Equipment Transfer Assistive Device Gait Belt,Front Wheeled Walker Orthotic/Prosthetic Devices or Brace: No Transfers Transfer Destination Chair Transfer Technique ambulated Transfer Ability Level of Assist Minimal Assistance,Moderate Assistance,1 Person Assistance ,Use of Upper Extremities Comments Mobility Comments pt sitting on the toilet when PT checked. NAC in room with pt. PT took over pt's care. pt completed sit to stand from the toilet using grab bar max A and max cues x 3 attempts. pt with dx of dementia and with difficulty with motor planning and processing instructions requiring repeated cues. pt ambulated from the toilet to the chair using FWW min to mod A and cues. presents with antalgic gait with decrease LE elevation. pt rested. sister came in. this PT is familiar with pt and sister from previous admission and caregiver training was conducted at that time. pt completed sit to stand from the chair max A and max cues again. one step cues for techniques with all tasks. ambulated in room using FWW ~ 20 ft min to mod A and cues. pt sat on chair again and positioned. (+) incision leakage during ambulation. Nurse aware. bed mobility not completed as pt sleeps on a recliner at home and does not want to do bed mobility at this time with PT. Gait Assessment Gait Gait Assistance Required: Minimum Assistance,Moderate Assistance Distance (Feet) 20 Able to Maintain Weight Bearing Status Yes During Gait Assistive Devices Assistive Device Gait Belt,Front Wheeled Walker Orthotic/Prosthetic Devices or Brace: No Gait Deviations General Gait Pattern Antalgic,Decreased Stride Length,Decreased Feet Clearance Factors Limiting Gait Function Factors Limiting Gait Function Decreased Activity Tolerance, Decreased Strength,Difficulty Following Directions,Limited Range of Motion,Pain,Poor Balance,Poor Safety Awareness PT-Balance Assessment Sitting Balance and Reactions Static Sitting Balance Ability Good Dynamic Sitting Balance Ability Good Standing Balance and Reactions Static Standing Balance Ability Fair Dynamic Standing Balance Ability Fair Device Used FWW M5 PT-IP Objective Assessments Start: 12/16/21 12:43 Freq: NEEDED Status: Active Protocol: Document 12/16/21 09:55 AB (Rec: 12/16/21 13:02 AB [id number]) Orientation Orientation/Cognition Level of Alertness Alert Orientation Name,Place,Situation Language Function Ability No Deficits Noted Safety Awareness Decreased Safety Awareness Memory Description Short Term Impaired,Guest Services Assistant Impaired Gross Range of Motion Lower Extremity ROM Assessment Right Impaired Impairments R knee flexion: ~ 50 deg Strength Comments Strength Comments RLE: 3+/5: pain limiting movement LLE: 4-/5 Sensation Assessment Sensation Gross Sensation WNL Muscle Tone Muscle Tone WNL Yes M6 PT-IP Treatment Start: 12/16/21 12:43 Freq: NEEDED Status: Active Protocol: Document 12/16/21 09:55 AB (Rec: 12/16/21 13:02 AB [email or web address]) Physical Therapy Treatment Education Education Provided Safety M7 PT-IP Assessment and Plan Start: 12/16/21 12:43 Freq: NEEDED Status: Active Protocol: Document 12/16/21 09:55 AB (Rec: 12/16/21 13:02 AB [email or web address]) PT Summary Assessment and Plan Potential Rehabilitation Potential Fair Status of Condition at Evaluation Evolving Summary Impairments Pain,ROM,Strength,Balance, Coordination,Sensation,Tone, Cognition,Bed Mobility, Transfers,Gait,Activity Tolerance Assessment Summary pt requiring max A with sit to stand and min to mod with ambulation. c/o increase knee pain limiting mobility. d/c plan depending on progress: SNF vs home with 24/7 assist and HHPT. will continue to assess progress. Goals Bed Mobility Goal Standby Assistance Transfer Goal Standby Assistance,Front Wheeled Walker Gait Goal Standby Assistance,Front Wheel Walker Gait Distance 150 Other Goals up/down 3 platform steps using FWW CGA Days to Meet Goals 10 Frequency of Treatment Frequency Of Treatment Twice a Day Treatment Plan Physical Therapy Treatment Plan Bed Mobility Training,Transfer Training,Gait Training, Therapeutic Exercise,Balance Retraining,Post Op Education, Discharge Planning,Hot or Cold Pack,Neuromuscular Re-ed, Coordination Retraining,Manual Therapy Weight Bearing Status Weight Bearing Status Weight Bear as Tolerated Allowed Weight Bearing Amount (enter % RLE WBAT or #) (%) Recommendations To Nursing Amount of Assist Needed 1 Person Assist Discharge Recommendations PT Discharge Recommendations Home with 24 Assist Available,Home Health,SNF Rehab,Home vs SNF Transportation Needs at Discharge Private Vehicle
--- NOTE | 2021-12-16 10:50 | PC.NURSE ---
At 1030 am I was alerted by the FIELD REPRESENTATIVE that the Pt's louie wrap that was over the dressing was saturated w/blood after working w/PT. I elevated the leg and changed the dressing per orders from Latonya Beh the PA. I used sterile technique. I informed the PA that the incision is closed but is actively bleeding on the lower part of incision.
--- NOTE | 2021-12-16 13:35 | PT-IP ANOTE ---
Attempted to see pt at 13:35, pt refused therapeutic exercises and OOB mobility due to pain and fatigue. Pt requested that we please let her rest until tomorrow.
[2021-12-16] MEDS: OXYCODONE IR 5 MG TABLET PO (17:15)
[2021-12-16] MEDS: DONEPEZIL 5 MG TABLET 10 MG PO (21:28)
[2021-12-16] MEDS: ATORVASTATIN 20 MG TABLET PO (21:29)
[2021-12-16] MEDS: AMLODIPINE 5 MG TABLET 10 MG PO (21:30)
[2021-12-17 03:09] VITALS: BP 147/66; PULSE 108; RESP 16; TEMP 36.7; O2SAT 95
[2021-12-17] MEDS: ACETAMINOPHEN 325 MG TABLET 650 MG PO ×3 (06:53→18:49)
[2021-12-17] MEDS: OXYCODONE IR 5 MG TABLET PO ×2 (06:53→20:45)
[2021-12-17] MEDS: PANTOPRAZOLE DR 40 MG TABLET PO (06:53)
[2021-12-17] MEDS: CEFAZOLIN 2 GM/20 ML SYRINGE IV ×3 (06:54→22:24)
[2021-12-17] MEDS: INSULIN LISPRO 100 UNIT/ML 3ML VIAL SUBCUT ×3 (08:11→22:10)
[2021-12-17] MEDS: MULTIVITAMIN 1 TABLET 1 TAB PO (08:12)
[2021-12-17] MEDS: ONDANSETRON 4 MG/2 ML INJ IV (08:12)
[2021-12-17] MEDS: ASPIRIN EC 81 MG TABLET PO ×2 (08:12→20:46)
[2021-12-17] MEDS: DOCUSATE 100 MG CAPSULE PO (08:13)
[2021-12-17] MEDS: METFORMIN HCL 500 MG TABLET 1000 MG PO ×2 (08:13→20:46)
[2021-12-17] MEDS: DULOXETINE 30 MG CAPSULE 60 MG PO ×2 (08:14→22:23)
[2021-12-17] MEDS: MAGNESIUM OXIDE 400 MG TABLET PO (08:14)
[2021-12-17] MEDS: PREGABALIN 50 MG CAPSULE 100 MG PO ×3 (08:14→22:23)
[2021-12-17] MEDS: INSULIN NPH/REG 70-30 100 UNIT/ML 3ML VIAL 15 UNIT SUBCUT (08:14)
[2021-12-17 08:34] VITALS: BP 138/64; PULSE 91; RESP 16; TEMP 36.2; O2SAT 93
--- NOTE | 2021-12-17 09:29 | PT.IPTN ---
Current Diagnoses Infection following a procedure, other surgical site, initial encounter (12/15/21) Other specified postprocedural states (12/15/21) Surgery Performed Operation Date: 12/15/21 12:45 Actual Procedures p I&D total knee(Right) - Yahir Caceres MD Physical Therapy Treatment Note M2 PT-IP Current Condition Start: 12/16/21 12:43 Freq: NEEDED Status: Active Protocol: Document 12/16/21 09:55 AB (Rec: 12/16/21 13:02 AB [id number]) Physical Therapy Current Condition Current Condition Evaluation Date 12/16/21 Treatment Diagnosis s/p R TKA I&D and poly exchange; difficulty in walking Onset Date 12/15/21 M3 PT-IP Subjective Start: 12/16/21 12:43 Freq: NEEDED Status: Active Protocol: Document 12/17/21 09:35 RBD (Rec: 12/17/21 09:53 RBD [id number]) Subjective Physical Therapy Visit Type Type Treatment Note Visit Start Time 09:15 Visit Stop Time 09:29 Total Visit Minutes 14 Number of SECURITY INCIDENT RESPONSE SPECIALIST Visits 1 Physical Therapy Visit Comments Patient Comments agreeable to PT; c/o nausea Therapy Pain Assessment Pain When Pain Assessed During Weight Bearing Pain Present Pain Present Pain Reported Location Right Knee Intensity 7 Scale Used Numeric (0 - 10) Pain Management Techniques Distraction,Modification of Treatment,Re-positioning, Timing of Activity with Medications M4 PT-IP Mobility and Gait Start: 12/16/21 12:43 Freq: NEEDED Status: Active Protocol: Document 12/17/21 09:35 RBD (Rec: 12/17/21 09:53 RBD [id number]) PT-Bed Mobility Assessment Supine to Sit Supine to Sit Minimal Assistance,Moderate Assistance Scooting Scooting to Edge of Bed Moderate Assistance PT-Transfer Assessment Sit to and From Stand Sit to and from Stand Minimal Assistance,Moderate Assistance,1 Person Assistance ,Use of Upper Extremities Equipment Transfer Assistive Device Gait Belt,Front Wheeled Walker Orthotic/Prosthetic Devices or Brace: No Transfers Transfer Destination Chair Transfer Technique ambulated Transfer Ability Level of Assist Minimal Assistance,Moderate Assistance,1 Person Assistance ,Use of Upper Extremities Comments Mobility Comments Patient in bed upon arrival. Pt required Mod A and use of cueing to when transitioning from supine w/ HOB elevated to sitting EOB. She required mod A for scooting to EOB. She was CGA for seated balance at EOB. Min to Mod A for sit to stand. Pt ambulated around the room Min A, ~ 30 feet, w/ antalgic gait. She required cueing for walker management and posture during ambulation. Pt performed stand to sit mod A ans required cueing for controlled decent. Pt positioned in chair, chair alarm on, and all need in reach. Gait Assessment Gait Gait Assistance Required: Minimum Assistance,1 Person Assist Distance (Feet) 30 Able to Maintain Weight Bearing Status Yes During Gait Assistive Devices Assistive Device Gait Belt,Front Wheeled Walker Orthotic/Prosthetic Devices or Brace: No Gait Deviations General Gait Pattern Antalgic,Decreased Stride Length,Decreased Feet Clearance Factors Limiting Gait Function Factors Limiting Gait Function Decreased Activity Tolerance, Decreased Strength,Difficulty Following Directions,Limited Range of Motion,Pain,Poor Balance,Poor Safety Awareness Comments Gait Comments See mobility section. PT-Balance Assessment Sitting Balance and Reactions Static Sitting Balance Ability Good Dynamic Sitting Balance Ability Good Standing Balance and Reactions Static Standing Balance Ability Fair Dynamic Standing Balance Ability Fair Device Used FWW M5 PT-IP Objective Assessments Start: 12/16/21 12:43 Freq: NEEDED Status: Active Protocol: Document 12/16/21 09:55 AB (Rec: 12/16/21 13:02 AB [id number]) Orientation Orientation/Cognition Level of Alertness Alert Orientation Name,Place,Situation Language Function Ability No Deficits Noted Safety Awareness Decreased Safety Awareness Memory Description Short Term Impaired,Nursing Home Impaired Gross Range of Motion Lower Extremity ROM Assessment Right Impaired Impairments R knee flexion: ~ 50 deg Strength Comments Strength Comments RLE: 3+/5: pain limiting movement LLE: 4-/5 Sensation Assessment Sensation Gross Sensation WNL Muscle Tone Muscle Tone WNL Yes M6 PT-IP Treatment Start: 12/16/21 12:43 Freq: NEEDED Status: Active Protocol: Document 12/17/21 09:35 RBD (Rec: 12/17/21 09:53 RBD [id number]) Physical Therapy Treatment Education Education Provided Safety M7 PT-IP Assessment and Plan Start: 12/16/21 12:43 Freq: NEEDED Status: Active Protocol: Document 12/17/21 09:35 RBD (Rec: 12/17/21 09:53 RBD [id number]) PT Summary Assessment and Plan Potential Rehabilitation Potential Fair Status of Condition at Evaluation Evolving Summary Impairments Pain,ROM,Strength,Balance, Coordination,Sensation,Tone, Cognition,Bed Mobility, Transfers,Gait,Activity Tolerance Assessment Summary Pt required min - mod A for sit to stand transfers. Re required Min A w/ cueing for ambulation. Ambulation increased her R knee pain. Patient would benefit from SNF vs home with 24/7 assist and HHPT to increase strength, endurance, and knee ROM for safe ambulation. Goals Bed Mobility Goal Standby Assistance Transfer Goal Standby Assistance,Front Wheeled Walker Gait Goal Standby Assistance,Front Wheel Walker Gait Distance 150 Other Goals up/down 3 platform steps using FWW CGA Days to Meet Goals 10 Frequency of Treatment Frequency Of Treatment Twice a Day Treatment Plan Physical Therapy Treatment Plan Bed Mobility Training,Transfer Training,Gait Training, Therapeutic Exercise,Balance Retraining,Post Op Education, Discharge Planning,Hot or Cold Pack,Neuromuscular Re-ed, Coordination Retraining,Manual Therapy Weight Bearing Status Weight Bearing Status Weight Bear as Tolerated Allowed Weight Bearing Amount (enter % RLE WBAT or #) (%) Recommendations To Nursing Amount of Assist Needed 1 Person Assist Discharge Recommendations PT Discharge Recommendations Home with 24/7 Assist Available,Home Health,SNF Rehab,Home vs SNF Transportation Needs at Discharge Private Vehicle
--- NOTE | 2021-12-17 11:12 | PM.PNPO.1 ---
Subjective Subjective Interval history: Doing better overall. Somewhat improved pain control. She has not had a bowel movement recently. Exam Vital Signs (past 8 hours): - 12/17/21 08:34 Temperature 97.2 F L Pulse Rate 91 H Respiratory Rate 16 Blood Pressure 138/64 Pulse Oximetry 93 Oxygen Flow Rate 0 Oxygen Delivery Method Nasal Cannula Oxygen Flow Rate 0 Narrative Exam Narrative: Dressing is dry. She is now in a meño dressing. Calf is soft, fair range of motion in the knee, able to ambulate reasonably well with standby psychiatric nursing aide Objective Labs Result Diagrams: 12/16/21 06:38 Labs: All cultures are no growth on preliminary results. [facility] Medical History Anxiety ASD (atrial septal defect) Chronic back pain CVA (cerebral vascular accident) Diabetes Diabetic neuropathy Fibromyalgia HLD (hyperlipidemia) HTN (hypertension) Kyphosis Mild dementia VENECIA (obstructive sleep apnea) Osteoarthritis Scoliosis Urinary frequency Surgical History (Updated 12/16/21 @ 08:50 by Latonya Cuello PA-C) History of arthroplasty of right knee (11/29/21) History of bunionectomy of right great toe History of hysterectomy History of orthopedic surgery History of orthopedic surgery History of repair of hiatal hernia History of tonsillectomy and adenoidectomy Hx of bariatric surgery (03/2021) Hx of cholecystectomy S/P epidural steroid injection Social History household members: family Smoking Status: Never smoker alcohol intake: former Assessment & Plan Post-op Postoperative Procedures: Procedures Operation Date: 12/15/21 12:45 Actual Procedure Side Surgeon p I&D total knee Right Yahir Caceres MD Postoperative day: 2 Postoperative status narrative: Doing reasonably well postoperatively. Cultures are still pending but no growth so far. She has been afebrile. Postoperative plan narrative: Improving postoperatively. Continue IV antibiotics until tomorrow. Anticipate discharge to home on a cephalosporin tomorrow. Recheck culture results tomorrow. Quality VTE Deep Vein Thrombosis/Pulmonary Embolism Present on Admission: No
[2021-12-17] MEDS: BISACODYL 10 MG SUPP PR (11:45)
[2021-12-17 11:51] VITALS: BP 115/57; PULSE 90; RESP 16; TEMP 36.6; O2SAT 97
[2021-12-17 17:06] VITALS: BP 119/58; PULSE 96; RESP 16; TEMP 36; O2SAT 93
[2021-12-17 20:29] VITALS: BP 112/50; PULSE 92; RESP 18; TEMP 36.9; O2SAT 96
[2021-12-17] MEDS: AMLODIPINE 5 MG TABLET 10 MG PO (20:46)
[2021-12-17] MEDS: DONEPEZIL 5 MG TABLET 10 MG PO (20:46)
[2021-12-17] MEDS: ATORVASTATIN 20 MG TABLET PO (20:46)
[2021-12-17 20:50] VITALS: BP 125/58
[2021-12-18] MEDS: PANTOPRAZOLE DR 40 MG TABLET PO (05:39)
[2021-12-18] MEDS: CEFAZOLIN 2 GM/20 ML SYRINGE IV (05:39)
[2021-12-18] MEDS: ACETAMINOPHEN 325 MG TABLET 650 MG PO ×2 (05:39→12:48)
[2021-12-18 05:48] VITALS: BP 129/64; PULSE 92; RESP 16; TEMP 36.3; O2SAT 94
--- NOTE | 2021-12-18 07:39 | PM.DS.1 ---
History of Present Illness History of Present Illness Date Patient Seen: 12/18/21 Time Patient Seen: 07:39 Chief complaint: OPB Narrative: Operative Date/Time/Diagnoses Date of procedure: 12/15/21 Time of procedure: 14:58 Pre-op diagnosis: Superficial infection at wound of right total knee replacement Post-op diagnosis: other (Same as above but also dehiscence of quadriceps closure superiorly) Procedure & Clinicians Procedure: Incision and drainage of right total knee replacement with polyethylene exchange Same procedure as scheduled: Yes Indications: The patient is a 66-year-old woman who underwent a right total knee replacement on November 29, 2021.? She was initially doing well but then had increasing discomfort around the site of the operation and some moderate erythema around the wound in the distal portion.? This erythema did not progress while she was taking oral antibiotics but also did not significantly improve.? Her pain continued to worsen so she was taken to the operating room for incision and drainage as precautionary procedure.? She agreed to this after discussion the risks benefits and alternatives.? Alternatives discussed included ongoing treatment with oral antibiotics and observation.? Risks discussed included but were not limited to:? Failure to alleviate any infection, stiffness, nerve damage, deep venous thrombosis, pulmonary embolism, stroke, myocardial infarction, permanent paralysis and . Surgeon: Yahir Caceres Garbage Depot Worker: Latonya Cuello Click Yes if Unassisted: No Anesthesia Type: General Operative Notes Findings: Subcutaneous hematoma.? The cellulitic appearance of the skin had improved in the 24 hours since her preoperative history and physical.? There was an area of approximately 2 cm in the quadriceps repair from her medial patellar arthrotomy that had dehisced. Closure Type: primary Specimen(s): other (Cultures were sent from the subcutaneous hematoma area and from the intra-articular aspect.) Prosthetic devices, grafts, tissues, transplants, or devices: The tibial insert was removed and replaced with a new 9 mm size 3-4 right Journey II articular insert. Applied: implant(s) Estimated Blood Loss (mL): 50 Blood products transfused: none Tourniquet time (min): 14 Discharge Providers Provider Date of admission: 12/16/21 08:45 Discharge Date: 12/18/21 Primary care physician: Radha Jacinto MD Consults: 12/15/21 15:54 Consult to Discharge Planning Routine Comment: Consult to Physical Therapy Evaluate & Treat Comment: Physician Instructions: postop TKA protocol Consult to Respiratory Therapy Evaluate & Treat Comment: Physician Instructions: Evaluate and treat Discharge provider: Latonya Cuello PA-C Summary Hospital Course Discharge Diagnosis: Superficial wound infection following R TKA s/p I&D of right knee and poly exchange Acute anemia d/t expected surgical blood loss Hospital Course: Ms Hamilton'giuseppe hospital course was unremarkable. On POD# 3 her cultures from surgery were preliminarily negative, and she felt ready to go home. She was eating and voiding without difficulty, and her pain was well-controlled with oral medication. PT worked with her throughout her stay, and she will continue outpt PT on discharge. Exam Vital Signs (past 8 hours): - 12/18/21 05:48 Temperature 97.4 F L Pulse Rate 92 H Respiratory Rate 16 Blood Pressure 129/64 Pulse Oximetry 94 Oxygen Delivery Method Nasal Cannula Oxygen Flow Rate 0 Narrative Exam Narrative: 5/5 strength in hip flexors, quadriceps, hamstrings, DF, PF, EHL bilaterally. Sensation to light touch intact throughout BLE. Calves soft, compressible, nontender and without palpable cords or masses. YVETTE dressing operating and with old, bloody drainage at distal portion; otherwise intact. Objective Labs Result Diagrams: 12/16/21 06:38 [facility] Medical History Anxiety ASD (atrial septal defect) Chronic back pain CVA (cerebral vascular accident) Diabetes Diabetic neuropathy Fibromyalgia HLD (hyperlipidemia) HTN (hypertension) Kyphosis Mild dementia VENECIA (obstructive sleep apnea) Osteoarthritis Scoliosis Urinary frequency Surgical History (Updated 12/16/21 @ 08:50 by Latonya Cuello PA-C) History of arthroplasty of right knee (11/29/21) History of bunionectomy of right great toe History of hysterectomy History of orthopedic surgery History of orthopedic surgery History of repair of hiatal hernia History of tonsillectomy and adenoidectomy Hx of bariatric surgery (03/2021) Hx of cholecystectomy S/P epidural steroid injection Social History household members: family Smoking Status: Never smoker alcohol intake: former Discharge Assessment & Plan Assessment and Plan Assessment: Superficial wound infection following R TKA s/p I&D of right knee and poly exchange Acute anemia d/t expected surgical blood loss Plan of Treatment: Cephalexin x 2 weeks Multimodal pain control Continue ASA 81 mg BID x 6 weeks for VTE prophylaxis Continue outpt PT Follow up in office in 2 weeks. Discharge Plan Discharge orders & Medications Discharge Orders: Discharge (Order); Ordered 12/18/21 Ordered By: Latonya Cuello Prescriptions: New oxycodone 5 mg Tablet 5 mg PO Q3HR PRN (Reason: pain, severe) Qty: 60 0RF tramadol 50 mg Tablet 50 mg PO Q6H PRN (Reason: Pain, Moderate (4-6)) Qty: 60 0RF docusate sodium 100 mg Capsule 100 mg PO BID PRN (Reason: constipation) Qty: 60 0RF cephalexin 500 mg capsule 500 mg PO QID 14 Days Qty: 56 0RF Rx Instructions: Take with food Continued multivitamin Tablet 1 tab PO DAILY atorvastatin 20 mg Tablet 20 mg PO BEDTIME donepezil [Aricept] 10 mg Tablet 10 mg PO BEDTIME omeprazole 40 mg Capsule,Delayed Release(Dr/Ec) 40 mg PO DAILY tramadol 50 mg Tablet 50 mg PO DAILY PRN (Reason: Pain) amlodipine 10 mg Tablet 10 mg PO BEDTIME metformin 1,000 mg Tablet 1,000 mg PO BID duloxetine 60 mg Capsule,Delayed Release(Dr/Ec) 60 mg PO BID eszopiclone [Lunesta] 3 mg Tablet 3 mg PO BEDTIME pregabalin 50 mg Capsule 100 mg PO TID magnesium oxide 400 mg magnesium Tablet 400 mg PO DAILY Novolin 70/30 U-100 Insulin 100 unit/mL (70-30) Suspension 15 unit SUBCUT QAM Label Comments: 6 u Novolin 70/30 U-100 Insulin 100 unit/mL (70-30) Suspension 6 - 8 unit SUBCUT BEDTIME cyclosporine [Restasis] 0.05 % Dropperette 1 drp OPHTHALMIC (EYE) BID acetaminophen 325 mg Tablet 650 mg PO Q6HR Qty: 120 0RF aspirin 81 mg Tablet,Delayed Release (Dr/Ec) 81 mg PO BID Qty: 84 0RF oxycodone 5 mg Tablet 5 mg PO Q4H PRN (Reason: Pain, Moderate (4-6)) Qty: 40 0RF Follow up/Referrals: Radha Jacinto MD [Primary Care Provider] - Yahir Caceres MD [Physician] - As previously scheduled (Follow up w/ Dr Caceres on 01/09/2022 @ 1:30 pm at [facility] office in [place]) Diet/Activity/Treatments Diet: Diet as Tolerated Activity: Walk frequently. Continue outpatient PT. Cold/Heat Therapy: Ice to knee as needed for pain. Skin/Wound/Dressing Care Report to your healthcare provider any signs of infection, such as:: chills, fever, night sweats, unusual drainage and unusual redness Dressing: May shower with dressing on; try to keep battery pack out of direct spray. When batteries , may disconnect pack and discard. Keep dressing in place until follow up appointment. No bathing or otherwise soaking incision. Visit Report/Discharge Packet Instructions: DI for Knee Replacement Stand Alone Forms: Surgery Discharge Discharge Data Primary Care Provider: Radha Jacinto VTE Deep Vein Thrombosis/Pulmonary Embolism Present on Admission: No
[2021-12-18 07:42] VITALS: BP 129/56; PULSE 82; RESP 17; TEMP 36.9; O2SAT 91
--- NOTE | 2021-12-18 07:58 | CM.DPC ---
Addendum entered by Farhana Smallwood R.N. 12/18/21 10:26: Spoke with pt sister Geneva regarding transportation. The earliest that [place] would be able to bead picker the patient would be 2pm. DCP informed RN and SIMULATION DEVELOPER. Farhana Smallwood RN/DCP Original Note: DCP Cont: Per MD, pt medically stable for discharge. Pt to be on PO abx for 2 weeks and follow up with MD in 2 weeks. P: Pt is medically stable for discharge. Pt to discharge home today via sister POV. Farhana Smallwood RN/TAOP
[2021-12-18] MEDS: INSULIN LISPRO 100 UNIT/ML 3ML VIAL SUBCUT ×2 (08:15→12:50)
[2021-12-18] MEDS: INSULIN NPH/REG 70-30 100 UNIT/ML 3ML VIAL 15 UNIT SUBCUT (08:17)
[2021-12-18] MEDS: DULOXETINE 30 MG CAPSULE 60 MG PO (08:22)
[2021-12-18] MEDS: METFORMIN HCL 500 MG TABLET 1000 MG PO (08:22)
[2021-12-18] MEDS: ASPIRIN EC 81 MG TABLET PO (08:22)
[2021-12-18] MEDS: MULTIVITAMIN 1 TABLET 1 TAB PO (08:22)
[2021-12-18] MEDS: PREGABALIN 50 MG CAPSULE 100 MG PO (08:22)
[2021-12-18] MEDS: MAGNESIUM OXIDE 400 MG TABLET PO (08:22)
[2021-12-18] MEDS: OXYCODONE IR 5 MG TABLET PO ×2 (10:03→12:47)
--- NOTE | 2021-12-18 10:41 | PT.IPTN ---
Current Diagnoses Infection following a procedure, other surgical site, initial encounter (12/16/21) Other specified postprocedural states (12/16/21) Surgery Performed Operation Date: 12/15/21 12:45 Actual Procedures p I&D total knee(Right) - Yahir Caceres MD Physical Therapy Treatment Note M2 PT-IP Current Condition Start: 12/16/21 12:43 Freq: NEEDED Status: Active Protocol: Document 12/18/21 10:20 SP (Rec: 12/18/21 13:11 SP [id number]) Physical Therapy Current Condition Current Condition Evaluation Date 12/16/21 Treatment Diagnosis s/p R TKA I&D and poly exchange; difficulty in walking Onset Date 12/15/21 M3 PT-IP Subjective Start: 12/16/21 12:43 Freq: NEEDED Status: Active Protocol: Document 12/18/21 10:20 SP (Rec: 12/18/21 13:11 SP [id number]) Subjective Physical Therapy Visit Type Type Treatment Note Visit Start Time 10:20 Visit Stop Time 10:41 Total Visit Minutes 21 Notes Vitals during tx: seated in chair pre mobility BP 115/62 HR 87 Number of DAIRY TECHNOLOGIST Visits 2 Physical Therapy Visit Comments Patient Comments Pt agreeable to working with therapy and work on stairs for ability to go home. Patient Goals Return home with sister to assist her and go to outpatient therapy. Therapy Pain Assessment Pain When Pain Assessed During Weight Bearing Pain Present Pain Present Pain Reported Location Right Knee Intensity 5 Scale Used Numeric (0 - 10) Description With Movement Pain Behaviors Facial Grimacing Pain Management Techniques Apply Cold,Distraction, Modification of Treatment,Re- positioning,Timing of Activity with Medications M4 PT-IP Mobility and Gait Start: 12/16/21 12:43 Freq: NEEDED Status: Active Protocol: Document 12/18/21 10:20 SP (Rec: 12/18/21 13:11 SP [id number]) PT-Bed Mobility Assessment Sit to Supine Sit to Supine Standby Assistance PT-Transfer Assessment Sit to and From Stand Sit to and from Stand Contact Guard Assistance, Minimal Assistance,1 Person Assistance,Use of Upper Extremities Equipment Transfer Assistive Device Gait Belt,Front Wheeled Walker Orthotic/Prosthetic Devices or Brace: No Transfers Transfer Destination Bed Transfer Technique ambulated using FWW Transfer Ability Level of Assist Standby Assistance,Contact Guard Assistance,Use of Upper Extremities Comments Mobility Comments Pt completed scoot to EO chair , sit>stand CGA w/FWW, standing marching x5 reps pre mobility assessment WB RLE Mod BUE WB on FWW w/ RLE WB, progressed ambulation across room step to> stagger step patterning, cued body closer to FWW during turns. Complete ascend/descend 3 PF steps w/ FWW and R HR, CGA-5%A for FWW safety stable placement on/off step and Min cues for body positioning, stable. Ambulated further 90 ft total w/ FWW SBA receiprocal patterning back to room bed. Stand>sit> supine SBA. DAIRY TECHNOLOGIST instructed post-op exercises: HS approx 90 deg flexion, AP, quad sets. Pt had call light and all needs in reach before left, bed alarmed. Gait Assessment Gait Gait Assistance Required: Standby Assistance,Contact Guard Assist Distance (Feet) 90 Able to Maintain Weight Bearing Status Yes During Gait Assistive Devices Assistive Device Gait Belt,Front Wheeled Walker Orthotic/Prosthetic Devices or Brace: No Gait Deviations General Gait Pattern Antalgic,Decreased Stride Length,Decreased Feet Clearance,Flexed Trunk,Step-to Gait Factors Limiting Gait Function Factors Limiting Gait Function Decreased Activity Tolerance, Decreased Strength,Limited Range of Motion,Pain Comments Gait Comments See mobility section. Stair Climbing Assessment Evaluation Level of Assist On Stairs Contact Guard Assistance, Minimal Assistance Devices Stair Climbing Assistive Devices Front Wheel Walker,Right Railing Technique/Endurance Stair Climbing Direction Ascend and Descend Stair Climbing Technique Step to Step Number of Steps Climbed 1 Stair Climbing Set # Repetitions (reps) 3 Comments Stair Climbing Comments Complete 3 PF steps using FWW and R HR, contact stabilize FWW as needed. PT-Balance Assessment Sitting Balance and Reactions Static Sitting Balance Ability Normal Dynamic Sitting Balance Ability Good Standing Balance and Reactions Static Standing Balance Ability Good Dynamic Standing Balance Ability Fair Device Used FWW M5 PT-IP Objective Assessments Start: 12/16/21 12:43 Freq: NEEDED Status: Active Protocol: Document 12/16/21 09:55 AB (Rec: 12/16/21 13:02 AB [id number]) Orientation Orientation/Cognition Level of Alertness Alert Orientation Name,Place,Situation Language Function Ability No Deficits Noted Safety Awareness Decreased Safety Awareness Memory Description Short Term Impaired,Unemployment Benefits Claims Taker Impaired Gross Range of Motion Lower Extremity ROM Assessment Right Impaired Impairments R knee flexion: ~ 50 deg Strength Comments Strength Comments RLE: 3+/5: pain limiting movement LLE: 4-/5 Sensation Assessment Sensation Gross Sensation WNL Muscle Tone Muscle Tone WNL Yes M6 PT-IP Treatment Start: 12/16/21 12:43 Freq: NEEDED Status: Active Protocol: Document 12/18/21 10:20 SP (Rec: 12/18/21 13:11 SP [id number]) Physical Therapy Treatment Exercises Exercises Ankle Pumps,Quad Sets,Heel Slides Knee ROM Measurement 90deg R knee flexion AROM Education Education Provided Safety Other Treatments Other Treatment Performed august w/ FWW CGA x5 reps each M7 PT-IP Assessment and Plan Start: 12/16/21 12:43 Freq: NEEDED Status: Active Protocol: Document 12/18/21 10:20 SP (Rec: 12/18/21 13:11 SP [id number]) PT Summary Assessment and Plan Potential Rehabilitation Potential Good Status of Condition at Evaluation Evolving Summary Impairments Pain,ROM,Strength,Balance, Coordination,Sensation,Tone, Cognition,Bed Mobility, Transfers,Gait,Activity Tolerance Progress Towards Goals Progressing Toward Goals,Slow Progress due to Pain,Slow Progress due to Activity Tolerance Assessment Summary Pt required CG- SBA throughout tx w/ FWW. Gait w/ FWW CG- SBA 90 ft total, completed 3 PF step mgt CG- 5%A w/ FWW and R HR. Pt is ok to return home with sister to assist her when medically cleared. Pt stated believes sister assisted her set up with outpt therapy. Goals Bed Mobility Goal Standby Assistance Transfer Goal Standby Assistance,Front Wheeled Walker Gait Goal Standby Assistance,Front Wheel Walker Gait Distance 150 Other Goals up/down 3 platform steps using FWW CGA Days to Meet Goals 10 Frequency of Treatment Frequency Of Treatment Twice a Day Treatment Plan Physical Therapy Treatment Plan Bed Mobility Training,Transfer Training,Gait Training, Therapeutic Exercise,Balance Retraining,Post Op Education, Discharge Planning,Hot or Cold Pack,Neuromuscular Re-ed, Coordination Retraining,Manual Therapy Other Recommendations and Next Treatment ROM R knee, continue post-op Focus exercises w/ HO review, transfers and gait progress distance w/ FWW. Precautions Other Precautions falls Weight Bearing Status Weight Bearing Status Weight Bear as Tolerated Allowed Weight Bearing Amount (enter % RLE WBAT or #) (%) Recommendations To Nursing Amount of Assist Needed Standby Assistance,1 Person Assist Discharge Recommendations PT Discharge Recommendations Home with Assistance, Outpatient PT Transportation Needs at Discharge Private Vehicle
[2021-12-18 11:43] VITALS: BP 121/60; PULSE 87; RESP 17; TEMP 36.2; O2SAT 95
--- NOTE | 2021-12-18 14:28 | PC.NURSE ---
Pt AOx4. Bedding was changed this morning since brief and sheets were soaked. We emphasized to patient that she can always call if she needs to use the restroom. She mentioned she didn't want to bother anyone. We expressed the importance of communicating these needs to us to prevent skin breakdown and infection. After this she called when she needed to use the bedside commode and her brief stayed dry. She Received last pain medication at 1PM. Pain has been 5/10 today. Worked with PT today and was able to ambulate around unit with walker. Her sister came to pick her up at 2PM for discharge. Discharge instructions were provided, pt was dressed and IV removed (fully intact).
== END 2021-12-18 14:27 | disposition home or self-care (01) | DRG 856 ==
LOC: OR 12-18 07:17 → AC 12-18 07:17
PROVIDERS: Admitting Provider Orthopaedic Surgery; PCP Family Medicine; Referring Provider Orthopaedic Surgery; Visit Provider Orthopaedic Surgery
PROC: 0SRC0JZ Replacement of Right Knee Joint with Synthetic Substitute, Open Approach (ICD-10-PCS; CPT 27447; principal; 2021-12-15 12:45)
DX: T81.41XA Infection following a procedure, superficial incisional surgical site, initial encounter (principal); U07.1 COVID-19; L03.115 Cellulitis of right lower limb; L76.32 Postprocedural hematoma of skin and subcutaneous tissue following other procedure; T81.32XA Disruption of internal operation (surgical) wound, not elsewhere classified, initial encounter; E78.5 Hyperlipidemia, unspecified; I10 Essential (primary) hypertension; E11.42 Type 2 diabetes mellitus with diabetic polyneuropathy; M79.7 Fibromyalgia; Z20.822 Contact with and (suspected) exposure to COVID-19; Z79.84 Long term (current) use of oral hypoglycemic drugs; Z96.651 Presence of right artificial knee joint; Z79.4 Long term (current) use of insulin
CPT/HCPCS: 36415; 82962; 85014; 85018; 87070; 87075; 87176; 87205; 87635; 97116; 97162; C1776; C9803; J0131; J0690; J1170; J1815; J2250; J2405; J2704; J3010; J7121